=== PATIENT | female | born 1945 | race American Indian/Alaskan Native ===

== ENCOUNTER 2016-04-13 12:56 | Outpatient (CLI) | payer MEDICARE ==
[2016-04-13 13:11] LABS: Hematocrit 33.1 % (30.3-42.9); Hemoglobin 11.1 gm/dl (10.1-14.3); Mean Corpuscular HGB Conc 33 % (30-34); Mean Corpuscular Hemoglobin 24 pg (28-32); Mean Corpuscular Volume 73 fl (79-97); Platelet Count 255 K/mm3 (140-440); Red Blood Count 4.57 M/mm3 (3.65-5.03); Red Cell Distribution Width 16.2 % (13.2-15.2); White Blood Count 4.9 K/mm3 (4.5-11.0)
[2016-04-13 13:35] LABS: Alanine Aminotransferase 21 units/L (7-56); Albumin 3.8 g/dL (3.9-5); Albumin/Globulin Ratio 1.7 %; Alkaline Phosphatase 86 units/L (35-129); Bilirubin,Total < 0.2 mg/dL (0.1-1.2); Blood Urea Nitrogen 14 mg/dL (7-17); Calcium 9.7 mg/dL (8.4-10.2); Carbon Dioxide 30 mmol/L (22-30); Chloride 94.2 mmol/L (98-107); Glucose 105 mg/dL (65-100); Potassium 3.4 mmol/L (3.6-5.0); Sodium 138 mmol/L (137-145); Total Protein 6.1 g/dL (6.3-8.2)
[2016-04-13 13:42] LABS: Anion Gap 17 mmol/L
== END 2016-04-13 12:57 | disposition home or self-care (01) ==
LOC: LAB 12:56
PROVIDERS: ATTEND Specialist
DX: G40.209 Localization-related (focal) (partial) symptomatic epilepsy and epileptic syndromes with complex partial seizures, not intractable, without status epilepticus (principal)
CPT/HCPCS: 36415; 80053; 85027

== ENCOUNTER 2017-03-15 10:22 | Outpatient (CLI) | payer MEDICARE ==
--- NOTE | 2017-03-16 09:35 | Mammography Report ---
BILATERAL DIGITAL SCREENING MAMMOGRAM with CAD: 03/15/17 10:22:00 CLINICAL: Routine screening. COMPARISON:03/09/16 FINDINGS: The breasts are almost entirely fatty. No mass, architectural distortion or suspicious calcifications. IMPRESSION: No mammographic evidence of malignancy. BI-RADS CATEGORY: 1 - - Negative RECOMMENDATION: Routine mammographic screening in one year. COMMENT: Patient follow-up letters are generated by our [employer] application.
== END 2017-03-15 10:23 | disposition home or self-care (01) ==
LOC: MAMMO 10:22
PROVIDERS: ATTEND Internal Medicine
DX: Z12.31 Encounter for screening mammogram for malignant neoplasm of breast (principal); I11.0 Hypertensive heart disease with heart failure; I50.30 Unspecified diastolic (congestive) heart failure; I25.10 Atherosclerotic heart disease of native coronary artery without angina pectoris; E78.00 Pure hypercholesterolemia, unspecified; E11.9 Type 2 diabetes mellitus without complications
CPT/HCPCS: 77067; G0202

== ENCOUNTER 2018-05-21 07:42 | Day surgery (SDC) | payer MEDICARE ==
[~2018-05-21 07:42] MED LIST: WATER FOR IRRIG STERILE IR ONE; WATER FOR IRRIG STERILE ONE
--- NOTE | 2018-05-21 08:26 | Anesthesia Day of Surgery ---
Anesthesia Day of Surgery - Day of Surgery Patient Examined: Yes Patient H&P Reviewed: Yes Patient is NPO: Yes Beta Blockers: Yes
--- NOTE | 2018-05-21 08:27 | Anesthesia Consultation ---
Anesthesia Consult and Med Hx Date of service: 05/21/18 - Airway Anesthetic Teeth Evaluation: Good ROM Head & Neck: Adequate Mental/Hyoid Distance: Adequate Mallampati Class: Class III Intubation Access Assessment: Probably Good - Pulmonary Exam CTA: Yes - Cardiac Exam Cardiac Exam: No Murmur - Pre-Operative Health Status ASA Pre-Surgery Classification: ASA3 Proposed Anesthetic Plan: MAC - Pulmonary Hx Smoking: No Hx Asthma: No COPD: No Hx Pneumonia: No Hx Sleep Apnea: Yes - Cardiovascular System Hx Hypertension: Yes (FOR 10+ YRS, DR. ZAMAN- PCP, DR. 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
[2018-05-21] MEDS ORDERED: DIPRIVAN 10 MG/ML IV ONE ×2 (08:30)
[2018-05-21] MEDS ORDERED: NACL 0.9% 1000 ML 1,000 ML IV SCH (09:00)
--- NOTE | 2018-05-21 10:13 | Short Stay Summary ---
Short Stay Documentation Date of service: 05/21/18 Narrative H&P: The patient presents for screening colonoscopy. Last study was several decades ago by her recollection. She has had minor BRBPR on the toilet tissue alone. - History Past Medical History: anemia, arthritis, COPD, diabetes, heart failure, seizures Past Surgical History: total hip replacement Social history: no significant social history, lives with family, no smoking, no alcohol abuse - Allergies and Medications Current Medications: Allergies nifedipine Adverse Reaction (Intermediate, Verified 05/21/18 09:06) Dizziness hydralazine [Hydralazine] Adverse Reaction (Mild, Verified 05/21/18 09:06) Nausea diclofenac [Diclofenac] Adverse Reaction (Verified 05/21/18 09:06) Bleeding Home Medications Medication Instructions Recorded Confirmed Last Taken Type Aspirin [Aspirin BABY CHEW TAB] 81 mg PO QDAY 09/28/15 05/21/18 Unknown History Clonidine HCl [Catapres] 0.3 mg PO BID 09/28/15 05/21/18 05/21/18 History Ferrous Sulfate [Feosol] 325 mg PO BID 09/28/15 05/21/18 Unknown History Metoprolol [Lopressor TAB] 50 mg PO BID 09/28/15 05/21/18 05/21/18 History Multivitamin Tab [Multiple Vitamin 1 each PO QDAY 09/28/15 05/21/18 Unknown History TAB (Theragran)] Pravastatin [Pravachol] 80 mg PO QHS 09/28/15 05/21/18 05/20/18 History RX: Vitamin E 400 unit PO DAILY 09/28/15 05/21/18 Unknown History RX: clonazePAM 1 mg PO QHS 09/28/15 05/21/18 05/20/18 History Valsartan/Hydrochlorothiazide 1 tab PO BID 09/28/15 05/21/18 Unknown History [Diovan Hct 160-12.5 mg] carBAMazepine XR (NF) [Carbatrol 300 mg PO Q12H 09/28/15 05/21/18 Unknown History XR] metFORMIN [Glucophage] 500 mg PO QDAY 09/28/15 05/21/18 Unknown History Olmesartan Medoxomil 40 mg PO DAILY 05/21/18 05/21/18 05/21/18 History Active Medications Sodium Chloride (Nacl 0.9% 1000 Ml) 1,000 mls @ 50 mls/hr IV DIRECT HUSSEIN Last Admin: 05/21/18 08:58 Dose: 50 mls/hr Documented by: - Physical exam General appearance: no acute distress, well-nourished, obese Integumentary: no rash, no growths, no abnormal pigmentation HEENT: Atraumatic, PERRLA, EOMI, Mucous membr. moist/pink Lungs: Clear to auscultation, Normal air movement Breasts: deferred Heart: Regular rate, Normal S1, Normal S2, No murmurs, no Gallops Gastrointestinal: normoactive bowel sounds, no tenderness, no distended, no masses, no guarding, no organomegaly, obese Female Genitourinary: deferred Rectal Exam: normal exam-external/orifice, normal rectal tone, no mass Extremities: no ischemia, pulses intact, pulses symmetrical, No edema, normal temperature, normal color, Full ROM, abnormal Neurological: Normal gait, Normal speech, Strength at 5/5 X4 ext, Normal tone, Sensation intact, Cranial nerves 3-12 NL, Reflexes 2+ - Brief post op/procedure progress note Date of procedure: 05/21/18 Findings: see dictated report Estimated blood loss: none Pathology: list (cecal polyp) Specimen disposition: to lab Condition: stable - Disposition Condition at discharge: Good Disposition: DC-[id number] TO HOME OR SELFCARE - Discharge Diagnoses (1) Diabetes mellitus Status: Chronic Comment: Currently on diet therapy. A1C 7.3 (2) Diastolic heart failure Status: Chronic Comment: No evidence of fluid overload (3) HTN (hypertension) Status: Chronic Comment: was suboptimally controlled upon presentation now would congested her lisinopril. In patient blood pressure much better controlled. Patient will go home on amlodipine T metoprolol 50 in the center through 40 twice a day. And when necessary clonidine. Short Stay Discharge Plan Activity: other (no driving for 24 hours. Avoid NSAIDs for 5 days) Weight Bearing Status: Full Weight Bearing Diet: diabetic Follow up with: ARIANA ZAMAN MD [Primary Care Provider] - 7 Days
--- NOTE | 2018-05-21 10:16 | Operative Report ---
Operative Report Operative Report: Date of procedure: 05/21/2018 Preprocedure diagnosis: Colon cancer screening, last studied over 10 years ago. Post procedure diagnosis: 9mm sessile cecal polyp. Left colon diverticulosis Procedure: Colonoscopy to the cecum with snare cautery polypectomy Endoscopist: Dr. Lee Anesthesia: Monitored anesthesia care per anesthesia department Estimated blood loss: 0 Medications: Monitored anesthesia care. See separate report by anesthesia for details. After careful discussion of the nature and purpose of the procedure as well as details of the technique risks benefits and alternatives the patient gave consent. Please see recent history and physical from the office. The patient was placed in the left lateral decubitus position and medicated per anesthesia. A rectal exam was performed sphincter tone was normal there were no masses palpable. The [employer] 570 scope was passed transanally and advanced under continuous direct vision without difficulty to the cecum. The colon was well prepared. The cecum revealed a 9 mm sessile polyp. The polyp was removed with snare and electrocautery without difficulty. It fragmented upon suction retrieval through the scope.. The ascending colon was normal and on forward and retroflexed views. The transverse colon is normal. The descending colon and sigmoid colon revealed scattered diverticula throughout and mild tortuosity. The rectum was normal on forward and retroflexed views. The procedure was well-tolerated overall and the patient was observed in recovery. Conclusions: 9 mm cecal polyp. Scattered diverticula throughout the left colon. Plan: Await pathology. Repeat colonoscopy in 5 years. Avoid NSAIDs except for low-dose aspirin for 5 days. Signed electronically: Tay Lee M.D.
[2018-05-21 10:55] VITALS: BP 164/90
[2018-05-21] MEDS ORDERED: ROBINUL ONE (11:15)
== END 2018-05-21 07:43 | disposition home or self-care (01) ==
LOC: GIO 07:42
PROVIDERS: ATTEND Internal Medicine Gastroenterology
DX: Z12.11 Encounter for screening for malignant neoplasm of colon (principal); D12.0 Benign neoplasm of cecum; K57.30 Diverticulosis of large intestine without perforation or abscess without bleeding; G40.909 Epilepsy, unspecified, not intractable, without status epilepticus; I11.0 Hypertensive heart disease with heart failure; I50.30 Unspecified diastolic (congestive) heart failure; E11.9 Type 2 diabetes mellitus without complications; E78.00 Pure hypercholesterolemia, unspecified; G47.30 Sleep apnea, unspecified; M19.90 Unspecified osteoarthritis, unspecified site; F32.9 Major depressive disorder, single episode, unspecified; F41.9 Anxiety disorder, unspecified; E66.9 Obesity, unspecified; Z68.41 Body mass index [BMI] 40.0-44.9, adult; Z83.3 Family history of diabetes mellitus; Z79.899 Other long term (current) drug therapy; Z98.890 Other specified postprocedural states; Z79.84 Long term (current) use of oral hypoglycemic drugs; Z96.643 Presence of artificial hip joint, bilateral; Z82.61 Family history of arthritis; Z82.49 Family history of ischemic heart disease and other diseases of the circulatory system; Z86.2 Personal history of diseases of the blood and blood-forming organs and certain disorders involving the immune mechanism
CPT/HCPCS: 45385; 82962; 88305; J2704; J7030

== ENCOUNTER 2020-03-25 11:13 | Outpatient (CLI) | payer MEDICARE ==
--- NOTE | 2020-03-25 14:02 | Mammography Report ---
DIGITAL SCREENING MAMMOGRAM WITH CAD, 03/25/2020 CLINICAL INFORMATION / INDICATION: Routine screening mammography. TECHNIQUE: Digital bilateral 2D mammography was obtained in the craniocaudal and mediolateral obliqu e projections. This examination was interpreted with the benefit of Computer-Aided Detection analysis . COMPARISON: 03/20/2019, 03/18/2018 FINDINGS: Breast Density: The breasts are almost entirely fatty. No dominant mass, suspicious calcifications, or architectural distortion in either breast. No interval change. IMPRESSION: No mammographic evidence of malignancy. Follow up recommendation: Routine yearly BI-RADS Category 1: Negative. A "normal" or negative report should not discourage follow up or biopsy of a clinically significant f inding. A written summary of these findings will be mailed to the patient. The patient will be entered into a mammography reporting system which will generate a reminder letter for the patient's next appointmen t at the appropriate interval. The [employer] recommends yearly mammograms starting at age 40 and continuing as l alvin as a woman is in good health. Breast MRI is recommended for women with an approximate 20-25% or greater lifetime risk of breast cancer, including women with a strong family history of breast or ova eryn cancer or who have been treated for Hodgkin's disease. Signer Name: Shani Pepper MD Signed: 03/25/2020 1:58 PM Workstation Name: [id number]
== END 2020-03-25 11:14 | disposition home or self-care (01) ==
LOC: MAMMO 11:13
PROVIDERS: ATTEND Internal Medicine
DX: Z12.31 Encounter for screening mammogram for malignant neoplasm of breast (principal)
CPT/HCPCS: 77067